=== PATIENT | male | born 1955 | race Caucasian/White ===

== ENCOUNTER 2019-02-17 05:56 | Day surgery (SDC) | payer BC, OTHER ==
[~2019-02-17] VITALS: Ht 180.3 cm; Wt 88.9 kg
[2019-02-17] MEDS ORDERED: LR 1,000 ML IV ONE (06:00)
[2019-02-17 06:25] LABS: HEMATOCRIT 41.9 % (42.0-52.0); HEMOGLOBIN 13.9 g/dl (13.5-17.5); MEAN CORPUSCULAR HEMOGLOBIN 30.6 pg (27.0-33.0); MEAN CORPUSCULAR HGB CONC 33.2 g/dl (32.0-36.5); MEAN CORPUSCULAR VOLUME 92.3 fl (80.0-96.0); PLATELET COUNT, AUTOMATED 253 10^3/uL (150-450); RED BLOOD COUNT 4.54 10^6/uL (4.30-6.10); WHITE BLOOD COUNT 7.9 10^3/uL (4.0-10.0)
[2019-02-17 06:42] LABS: BLOOD UREA NITROGEN 11 MG/DL (7-18); CALCIUM LEVEL 8.5 MG/DL (8.8-10.2); CARBON DIOXIDE LEVEL 25 MEQ/L (21-32); CHLORIDE LEVEL 111 MEQ/L (98-107); CREATININE FOR GFR 0.98 MG/DL (0.70-1.30); GLOMERULAR FILTRATION RATE > 60.0 (>49); GLUCOSE, FASTING 99 MG/DL (70-100); POTASSIUM SERUM 4.1 MEQ/L (3.5-5.1); SODIUM LEVEL 141 MEQ/L (136-145)
[2019-02-17] MEDS ORDERED: PROPOFOL 200 MG/20 ML VIAL As Ordered ONE ×2 (07:15→07:18)
[2019-02-17] MEDS ORDERED: fentaNYL 250 MCG/5 ML INJECTION (J3010) As Ordered ONE (07:15)
[2019-02-17] MEDS ORDERED: LIDOCAINE 2% INJ 100 MG/5 ML SDV (FOR ANES.) As Ordered ONE (07:15)
[2019-02-17] MEDS ORDERED: ROCURONIUM BROMIDE 50 MG/5 ML VIAL As Ordered ONE (07:15)
[2019-02-17] MEDS ORDERED: MIDAZOLAM INJ 2 MG/2 ML VIAL (J2250) As Ordered ONE (07:16)
[2019-02-17] MEDS ORDERED: BUPIVACAINE HCL 0.25% 30 ML VIAL As Ordered ONE (07:29)
[2019-02-17] MEDS ORDERED: BUPIVACAINE LIPOSOME/PF 1.3% 20ML VIAL (13.3MG/ML)(EXPAREL)(C9290 PER1MG) As Ordered ONE (09:08)
[2019-02-17] MEDS ORDERED: GLYCOPYRROLATE INJ 0.2 MG/ML 2 ML VIAL As Ordered ONE (09:26)
[2019-02-17] MEDS ORDERED: KETOROLAC 60 MG/2 ML VIAL (J1885) As Ordered ONE (09:26)
[2019-02-17] MEDS ORDERED: dexameTHASONE 4 MG/ML 1ML VIAL (J1100) As Ordered ONE (09:26)
[2019-02-17] MEDS ORDERED: ONDANSETRON 4MG/2ML VIAL (J2405) As Ordered ONE (09:26)
[2019-02-17] MEDS ORDERED: NEOSTIGMINE 10 MG/10 ML VIAL (J2710) As Ordered ONE (09:26)
[2019-02-17] MEDS ORDERED: HYDR-3715 PO (09:58)
[2019-02-17] MEDS ORDERED: PERCOCET 5MG/325MG TAB PO PRN (10:30)
[2019-02-17] MEDS ORDERED: LR 1,000 ML IV SCH (10:30)
[2019-02-17] MEDS ORDERED: ACETAMINOPHEN TAB 650MG DOSE (2X325MG) PO PRN (10:30)
[2019-02-17] MEDS ORDERED: fentaNYL 100 MCG/2 ML INJECTION (J3010) IV PRN (10:30)
[2019-02-17] MEDS ORDERED: HYDROMORPHONE HCL 0.5 MG/ 0.5 ML SYRINGE (J1170 PER 1) IV PRN (10:30)
[2019-02-17] MEDS ORDERED: ONDANSETRON 4MG/2ML VIAL (J2405) IV PRN (10:30)
[2019-02-17] MEDS ORDERED: NORCO, ANEXSIA 5/325MG TABLET (HYDROcodone/ACETAMINOPHEN) PO PRN (10:30)
[2019-02-17] MEDS ORDERED: IBUPROFEN 600 MG TAB PO PRN (10:30)
[2019-02-17 11:38] VITALS: BP 131/70
--- NOTE | 2019-02-17 14:25 | RO ---
DATE OF PROCEDURE: 02/17/2019 PREOPERATIVE DIAGNOSIS: Recurrent right inguinal hernia. POSTOPERATIVE DIAGNOSIS: Recurrent right inguinal hernia. PROCEDURE PERFORMED: Repair of recurrent right inguinal hernia with ULTRAPRO mesh. SURGEON: Dr. Rutherford ANESTHESIA: General. INDICATIONS FOR THE PROCEDURE: The patient is a 63-year-old man who had undergone bilateral inguinal hernias as an . He has recently noticed a recurrent bulge in the right inguinal area. Examination confirmed an inguinal hernia and he is now for repair of his recurrent right inguinal hernia. OPERATIVE PROCEDURE: The patient was brought to the operating room and placed on the table in a supine position. He was placed under general anesthesia. The patient's lower abdomen, groins and genitalia were prepped and draped in a sterile fashion. Examination revealed a slightly depressed scar transversely low in the right lower quadrant. A transverse slightly oblique scar was made slightly above the level of his existing scar. This was deepened through the subcutaneous tissues to the external oblique aponeurosis. Dissection exposed the external oblique and this was opened in the direction of its fibers medially and inferiorly. There was some scarring to the overlying tissues which required some dissection to better expose the external inguinal ring. The spermatic cord was from the overlying external oblique aponeurosis and surrounding tissues and elevated with a Liberty drain. The patient was noted to have a perhaps 2-3 cm bulge of fibrofatty tissue protruding through the lateral aspect of the inguinal floor consistent with a direct hernia. There was a smaller defect medially that also allowed protrusion of some fatty tissue. Once the inguinal floor had been completely cleared the conjoined tendon was approximated to the shelving edge of the inguinal ligament with several interrupted simple sutures of 2-0 Ethibond. A 6 x 11 cm piece of ULTRAPRO mesh was then selected. This was trimmed to fit the inguinal floor and split laterally to fit about the spermatic cord. The mesh was sutured at the pubic tubercle with a 3-0 Prolene which was then carried along the lateral border of the mesh as a running suture, suturing the mesh to the shelving edge of the inguinal ligament. Medially the mesh was tacked down to the underlying internal oblique muscle and fascia with interrupted simple sutures of 3-0 Vicryl. The tails of the mesh were overlapped lateral to the spermatic cord and sutured with Vicryl. This appeared to give a good reconstruction of the inguinal floor. 40 mL of a mix of 20 mL of Exparel and 20 mL of 0.25% Marcaine were infiltrated into the tissues around the repair, both the subcutaneous tissues and the muscles of the abdominal wall. The external oblique aponeurosis was closed with a running suture of 1-0 Vicryl. The subcutaneous tissues were closed with 3-0 chromic and the skin edges were approximated with a running subcuticular 4-0 Vicryl and Steri-Strips. Light dressings were applied. The patient tolerated the procedure well without apparent complication. He was awakened in the operating room, extubated and moved to the recovery room in stable condition.
--- NOTE | 2019-02-17 20:37 | ECGEPIP ---
Stationary ECG Study [facility] Test Date: 2019-02-17 Pat Name: LIONEL NAJERA Department: Room: - Gender: M [employer] Representative: [facility] : [id number] Requested By: Toño Singh Order Number: [id number] Reading MD: Parveen Angelo Measurements Intervals [place] Rate: 57 P: 57 NH: 187 QRS: -57 QRSD: 140 T: -4 QT: 452 QTc: 441 Interpretive Statements Sinus bradycardia Extreme left axis deviation - left anterior hemiblock Right bundle branch block No prior tracing for comparison Electronically Signed On 02-17-2019 20:37:24 EDT by Parveen Angelo
== END 2019-02-17 11:40 | disposition home or self-care (01) ==
LOC: M SDC 05:56
PROVIDERS: ATTEND Surgery
DX: K40.91 Unilateral inguinal hernia, without obstruction or gangrene, recurrent (principal); Z91.030 Bee allergy status
CPT/HCPCS: 36415; 49520; 80048; 85027; 93005; C1781; C9290; J1100; J1885; J2250; J2405; J2710; J3010

== ENCOUNTER → 2021-02-21 | Outpatient (REF) | payer OTHER ==
[~2021-02-21] MED LIST: HYDR-3715 PO
== END ==
LOC: M LAB REF 16:23
PROVIDERS: ATTEND Physician Assistant
DX: C44.619 Basal cell carcinoma of skin of left upper limb, including shoulder (principal)

== ENCOUNTER → 2021-03-21 | Outpatient (REF) | payer OTHER | LOC: M LAB REF 18:47 | PROVIDERS: ATTEND Dermatology | DX: C44.619 Basal cell carcinoma of skin of left upper limb, including shoulder (principal) ==

== ENCOUNTER → 2023-04-24 | Outpatient (CLI) | payer OTHER, BC | LOC: M WUC 08:51 | PROVIDERS: ATTEND Internal Medicine | DX: M54.2 Cervicalgia (principal); M47.812 Spondylosis without myelopathy or radiculopathy, cervical region ==

== ENCOUNTER → 2023-05-15 | Outpatient (CLI) | payer BC | LOC: M RAD 08:49 | PROVIDERS: ATTEND Physician Assistant | DX: R36.1 Hematospermia (principal); N50.3 Cyst of epididymis ==

== ENCOUNTER → 2023-07-15 | Outpatient (CLI) | payer BC | LOC: M PLALAB 11:04 | PROVIDERS: ATTEND Physician Assistant | DX: R93.89 Abnormal findings on diagnostic imaging of other specified body structures (principal) ==

== ENCOUNTER → 2023-08-25 | Outpatient (CLI) | payer BC | LOC: M CARPUL 09:06 | PROVIDERS: ATTEND Nurse Practitioner Family | DX: R55 Syncope and collapse (principal); I08.3 Combined rheumatic disorders of mitral, aortic and tricuspid valves ==

== ENCOUNTER → 2023-09-01 | Outpatient (CLI) | payer BC ==
[~2023-09-01] MED LIST changes: +ISOVUE-370 76% 100ML VIAL ONE
== END ==
LOC: M RAD 08:08
PROVIDERS: ATTEND Physician Assistant
DX: R36.1 Hematospermia (principal); K42.9 Umbilical hernia without obstruction or gangrene; K57.30 Diverticulosis of large intestine without perforation or abscess without bleeding; K40.90 Unilateral inguinal hernia, without obstruction or gangrene, not specified as recurrent; N28.1 Cyst of kidney, acquired; I70.0 Atherosclerosis of aorta; N42.0 Calculus of prostate
CPT/HCPCS: 72193; Q9967

== ENCOUNTER → 2024-03-15 | Outpatient (CLI) | payer BC ==
[~2024-03-15] MED LIST changes: -ISOVUE-370 76% 100ML VIAL ONE
== END ==
LOC: M EKG 10:55
PROVIDERS: ATTEND Anesthesiology
DX: Z01.818 Encounter for other preprocedural examination (principal); I45.10 Unspecified right bundle-branch block

== ENCOUNTER 2024-03-22 07:56 | Day surgery (SDC) | payer BC ==
[~2024-03-22] VITALS: Ht 180.3 cm; Wt 82.1 kg
[2024-03-22] MEDS ORDERED: fentaNYL 100 MCG/2 ML INJECTION As Ordered ONE (08:05)
[2024-03-22] MEDS ORDERED: ROCURONIUM BROMIDE 50MG/5ML VIAL As Ordered ONE (08:05)
[2024-03-22] MEDS ORDERED: LIDOCAINE 2% 100MG/5ML SDV (FOR ANES.) As Ordered ONE (08:05)
[2024-03-22] MEDS ORDERED: MIDAZOLAM INJ 2MG/2ML VIAL As Ordered ONE (08:05)
[2024-03-22] MEDS ORDERED: propofoL 200 MG/20 ML VIAL As Ordered ONE (08:05)
[2024-03-22] MEDS ORDERED: ONDANSETRON 4MG 2ML VIAL As Ordered ONE (08:05)
[2024-03-22] MEDS ORDERED: dexmedeTOMIDine (4MCG/ML)200MCG/50ML BTL (PRECEDEX) As Ordered ONE (08:10)
[2024-03-22] MEDS ORDERED: ACETAMINOPHEN 1000MG 100ML IV BAG As Ordered ONE (08:11)
[2024-03-22] MEDS: LR 1,000 ML IV SCH (08:51)
[2024-03-22] MEDS: ceFAZolin SOD 2 GM in IV 1 EA IV ONE (09:26)
[2024-03-22] MEDS ORDERED: SUGAMMADEX SODIUM 500 MG/5 ML VIAL (BRIDION) As Ordered ONE (09:53)
[2024-03-22] MEDS ORDERED: KETOROLAC 60MG 2ML VIAL As Ordered ONE (09:53)
[2024-03-22] MEDS ORDERED: LABETALOL 100MG/20ML VIAL As Ordered ONE (10:05)
[2024-03-22] MEDS ORDERED: MORPHINE 2 MG/ML 1ML VIAL IV PRN (10:30)
[2024-03-22] MEDS ORDERED: fentaNYL 100 MCG/2 ML INJECTION IV PRN (10:30)
[2024-03-22] MEDS ORDERED: ONDANSETRON 4MG 2ML VIAL IV PRN (10:30)
[2024-03-22] MEDS ORDERED: NORCO, ANEXSIA 5/325MG TABLET (HYDROcodone/ACETAMINOPHEN) PO PRN ×2 (10:35)
[2024-03-22] MEDS ORDERED: NS 1,000 ML IV SCH (10:35)
[2024-03-22] MEDS: oxyCODONE 5MG TAB PO PRN (11:24)
[2024-03-22 11:46] VITALS: BP 139/69; TEMP 96.9; O2SAT 98
== END 2024-03-22 12:08 | disposition home or self-care (01) ==
LOC: M SDC 07:56
PROVIDERS: ATTEND Surgery
DX: K40.90 Unilateral inguinal hernia, without obstruction or gangrene, not specified as recurrent (principal); Z91.030 Bee allergy status; F12.10 Cannabis abuse, uncomplicated
CPT/HCPCS: 49650; C1781; J0131; J0665; J0690; J1100; J1885; J1920; J2250; J2405; J3010; S2900

== ENCOUNTER → 2024-07-12 | Outpatient (CLI) | payer BC | LOC: M RAD 12:29 | PROVIDERS: ATTEND Internal Medicine | DX: Z12.2 Encounter for screening for malignant neoplasm of respiratory organs (principal); F17.211 Nicotine dependence, cigarettes, in remission ==

== ENCOUNTER 2024-09-08 08:59 | Day surgery (SDC) | payer BC ==
[~2024-09-08] VITALS: Ht 180.3 cm; Wt 78.5 kg
[~2024-09-08 08:59] MED LIST changes: +NS 250 ML IV ONE
[2024-09-08] MEDS ORDERED: propofoL 200 MG/20 ML VIAL As Ordered ONE (09:06)
[2024-09-08] MEDS ORDERED: LIDOCAINE 2% 100MG/5ML SDV (FOR ANES.) As Ordered ONE (09:06)
[2024-09-08 10:25] VITALS: BP 112/68; O2SAT 97
== END 2024-09-08 10:35 | disposition home or self-care (01) ==
LOC: M OPP 08:59
PROVIDERS: ATTEND Surgery
DX: Z12.11 Encounter for screening for malignant neoplasm of colon (principal); Z12.12 Encounter for screening for malignant neoplasm of rectum; K64.8 Other hemorrhoids; Z85.828 Personal history of other malignant neoplasm of skin; Z91.030 Bee allergy status; Z72.0 Tobacco use

== ENCOUNTER → 2025-07-14 | Outpatient (CLI) | payer BC ==
[~2025-07-14] MED LIST changes: -NS 250 ML IV ONE
== END ==
LOC: M RAD 09:23
PROVIDERS: ATTEND Internal Medicine
DX: Z12.2 Encounter for screening for malignant neoplasm of respiratory organs (principal); F17.211 Nicotine dependence, cigarettes, in remission; J43.9 Emphysema, unspecified; I25.10 Atherosclerotic heart disease of native coronary artery without angina pectoris; I70.0 Atherosclerosis of aorta

== ENCOUNTER → 2025-08-22 | Outpatient (CLI) | payer BC ==
[~2025-08-22] MED LIST changes: +E-Z-GAS II EFFERVESCENT PACKET (SODIUM BICARB./CITRIC ACID/SIMETHICONE) As Ordered ONE; +E-Z-HD 98% w/w 340 GM SUSP BTL As Ordered ONE; +E-Z-PAQUE 96% w/w SUSP 176 GM BTL As Ordered ONE
== END ==
LOC: M RAD 09:32
PROVIDERS: ATTEND Internal Medicine
DX: R13.10 Dysphagia, unspecified (principal)

== ENCOUNTER → 2025-09-06 | Outpatient (REF) | payer BC ==
[~2025-09-06] MED LIST changes: -E-Z-GAS II EFFERVESCENT PACKET (SODIUM BICARB./CITRIC ACID/SIMETHICONE) As Ordered ONE; -E-Z-HD 98% w/w 340 GM SUSP BTL As Ordered ONE; -E-Z-PAQUE 96% w/w SUSP 176 GM BTL As Ordered ONE
== END ==
LOC: M SFHCDERM 18:03
PROVIDERS: ATTEND Physician Assistant
DX: L57.0 Actinic keratosis (principal)